=== PATIENT | female | born 1945 | race Caucasian/White ===

== ENCOUNTER → 2016-05-11 | Outpatient (CLI) | payer MEDICARE, BC ==
[2016-05-13 22:36] LABS: HEPATITIS C GENOTYPE 3 1a (.)
== END ==
LOC: LAB 10:01
PROVIDERS: ATTEND Internal Medicine Gastroenterology
DX: B18.2 Chronic viral hepatitis C (principal)
CPT/HCPCS: 36415; 81270; 82172; 82247; 82977; 83010; 83883; 84460

== ENCOUNTER → 2016-08-06 | Outpatient (CLI) | payer MEDICARE, BC | LOC: WI 10:36 | PROVIDERS: ATTEND Internal Medicine | DX: Z12.31 Encounter for screening mammogram for malignant neoplasm of breast (principal) | CPT/HCPCS: 77067; G0202 ==

== ENCOUNTER → 2016-09-20 | Outpatient (CLI) | payer MEDICARE, BC ==
[2016-09-20 11:25] LABS: ABSOLUTE BASOPHILS # (AUTO) 0.1 10^3/uL (0.0-0.2); ABSOLUTE EOSINOPHILS # (AUTO) 0.1 10^3/uL (0.0-0.6); ABSOLUTE LYMPHOCYTES (AUTO) 1.1 10^3/uL (0.5-4.7); ABSOLUTE MONOCYTES (AUTO) 0.6 10^3/uL (0.1-1.4); ABSOLUTE NEUT (AUTO) 6.2 10^3/uL (1.7-8.2); BASOPHILS % (AUTO) 0.6 % (0-2); EOSINOPHILS % (AUTO) 1.5 % (0-6); HEMATOCRIT 38.8 % (36.0-47.0); HEMOGLOBIN 12.3 g/dL (12.0-15.5); HGB HCT DIFFERENCE -1.9; LYMPHOCYTES % (AUTO) 13.2 % (13-45); MEAN CORPUSCULAR HEMOGLOBIN 23.7 pg (27.0-33.4); MEAN CORPUSCULAR HGB CONC 31.6 g/dL (32.0-36.0); MEAN CORPUSCULAR VOLUME 75 fl (80-97); RED BLOOD COUNT 5.18 10^6/uL (3.72-5.28); RED CELL DISTRIBUTION WIDTH 16.8 % (11.5-14.0); SEGMENTED NEUTROPHILS % (AUTO) 76.7 % (42-78); WHITE BLOOD COUNT 8.1 10^3/uL (4.0-10.5)
[2016-09-20 11:43] LABS: ALANINE AMINOTRANSFERASE 30 U/L (9-52); ALBUMIN 3.9 g/dL (3.5-5.0); ALKALINE PHOSPHATASE 112 U/L (38-126); ASPARTATE AMINO TRANSFERASE 23 U/L (14-36); BILIRUBIN,DIRECT 0.5 mg/dL (0.0-0.4); BILIRUBIN,TOTAL 0.8 mg/dL (0.2-1.3); TOTAL PROTEIN 7.7 g/dL (6.3-8.2)
== END ==
LOC: OD 10:45
PROVIDERS: ATTEND Internal Medicine Gastroenterology
DX: B19.20 Unspecified viral hepatitis C without hepatic coma (principal)
CPT/HCPCS: 36415; 80076; 85025

== ENCOUNTER → 2017-01-28 | Outpatient (CLI) | payer MEDICARE, BC ==
[2017-01-29 12:37] LABS: HEPATITIS C QUANT NON GRAPH HCV Not Detected IU/mL (.)
== END ==
LOC: OD 12:42
PROVIDERS: ATTEND Internal Medicine Gastroenterology
DX: B19.20 Unspecified viral hepatitis C without hepatic coma (principal)
CPT/HCPCS: 36415; 87522

== ENCOUNTER → 2017-02-01 | Outpatient (CLI) | payer MEDICARE, BC ==
--- NOTE | 2017-02-01 15:16 | RADIOLOGY REPORT (SQ) ---
EXAM DESCRIPTION: MRI CERVICAL SPINE WITHOUT COMPLETED DATE/TIME: 02/01/2017 12:12 pm REASON FOR STUDY: RADICULOPATHY, CERVICAL REGION M54.12 RADICULOPATHY, CERVICAL REGION COMPARISON: None. TECHNIQUE: Sagittal and Axial imaging includes T1, T2, STIR and gradient echo sequences. LIMITATIONS: None. FINDINGS: ALIGNMENT: Normal. VERTEBRAE: Intact. BONE MARROW: Normal. No marrow replacement or reactive changes. DISCS: Loss of T2 signal C5-6. HARDWARE: None in the spine. CORD AND BASE OF BRAIN: Normal in size and signal intensity. SOFT TISSUES: No soft tissue masses. C1-C2: No significant spinal stenosis. C2-C3: Disc osteophyte complex with ossification of posterior longitudinal ligament. Mild narrowing of the left exit foramina. C3-C4: Disc osteophyte complex asymmetric left. Lateral mass hypertrophy on the left. Moderate narr owing of the left exit foramina. Flattening of the leftward anterior thecal sac and mild central can al stenosis. C4-C5: Disc osteophyte complex and ossification of the posterior longitudinal ligament. Flattening o f the anterior thecal sac. Mild central canal stenosis. C5-C6: Disc osteophyte complex. Generalized ossification of posterior longitudinal ligament. Modera te central canal stenosis and right exit foraminal stenosis. C6-C7: No significant spinal stenosis or exit foraminal stenosis. C7-T1: No significant spinal stenosis or exit foraminal stenosis. UPPER THORACIC: Incompletely imaged. No significant spinal stenosis or exit foraminal stenosis. OTHER: No other significant finding. IMPRESSION: Multilevel disc osteophyte complexes with associated ossification of posterior longitudi nal ligament. Multilevel spinal stenosis most prominent C5-6. Multilevel exit foraminal stenosis. TECHNICAL DOCUMENTATION: JOB ID: [id number]- All Rights Reserved
== END ==
LOC: RAD 11:08
PROVIDERS: ATTEND Internal Medicine
DX: M54.12 Radiculopathy, cervical region (principal)
CPT/HCPCS: 72141

== ENCOUNTER 2017-04-15 16:47 | Observation (INO) | payer MEDICARE, BC ==
[2017-04-15] MEDS ORDERED: INFLUENZA ADLT QUAD (36MOS+) 2017-18 VAC 0.5 ML SYR IM PRN (17:24)
[2017-04-15] MEDS ORDERED: 1/2 NORMAL SALINE 1,000 ML IV PRN (17:25)
[2017-04-15 18:39] LABS: ARTERIAL BLOOD BASE EXCESS 3.4 mmol/L; ARTERIAL BLOOD O2 SATURATION 96.7 % (94-98)
[2017-04-15 18:40] LABS: ABSOLUTE EOSINOPHILS # (AUTO) 0.2 10^3/uL (0.0-0.6); ABSOLUTE LYMPHOCYTES (AUTO) 0.8 10^3/uL (0.5-4.7); ABSOLUTE MONOCYTES (AUTO) 0.8 10^3/uL (0.1-1.4); ABSOLUTE NEUT (AUTO) 4.8 10^3/uL (1.7-8.2); BASOPHILS % (AUTO) 0.6 % (0-2); EOSINOPHILS % (AUTO) 2.3 % (0-6); HEMATOCRIT 40.8 % (36.0-47.0); HEMOGLOBIN 13.3 g/dL (12.0-15.5); HGB HCT DIFFERENCE -0.9; LYMPHOCYTES % (AUTO) 12.5 % (13-45); MEAN CORPUSCULAR HEMOGLOBIN 25.1 pg (27.0-33.4); MEAN CORPUSCULAR HGB CONC 32.6 g/dL (32.0-36.0); MEAN CORPUSCULAR VOLUME 77 fl (80-97); MONOCYTES % (AUTO) 12.3 % (3-13); RED CELL DISTRIBUTION WIDTH 16.5 % (11.5-14.0); SEGMENTED NEUTROPHILS % (AUTO) 72.3 % (42-78); WHITE BLOOD COUNT 6.6 10^3/uL (4.0-10.5)
[2017-04-15 19:14] LABS: ALANINE AMINOTRANSFERASE 43 U/L (9-52); ALBUMIN 3.6 g/dL (3.5-5.0); ALKALINE PHOSPHATASE 97 U/L (38-126); ANION GAP 9 (5-19); ASPARTATE AMINO TRANSFERASE 21 U/L (14-36); BILIRUBIN,DIRECT 0.5 mg/dL (0.0-0.4); BILIRUBIN,TOTAL 0.8 mg/dL (0.2-1.3); BLOOD UREA NITROGEN 13 mg/dL (7-20); CALCIUM 9.7 mg/dL (8.4-10.2); CARBON DIOXIDE 26 mmol/L (22-30); CHLORIDE 105 mmol/L (98-107); GLUCOSE 101 mg/dL (75-110); POTASSIUM 3.8 mmol/L (3.6-5.0); SODIUM 140.2 mmol/L (137-145); TOTAL PROTEIN 6.8 g/dL (6.3-8.2)
[2017-04-15 19:21] LABS: CREATINE KINASE < 20 U/L (30-135)
[2017-04-15 19:30] LABS: CREATINE KINASE MB < 0.22 ng/mL (<4.55); TROPONIN I < 0.012 ng/mL
[2017-04-15] MEDS ORDERED: DEXTROSE 50%-WATER SYRINGE 12.5 GM/25 ML DOSE IV PRN ×2 (20:49→21:20)
[2017-04-15] MEDS ORDERED: GLUCAGON,HUMAN RECOMB 1 MG INJ IM PRN ×2 (20:49→21:07)
[2017-04-15] MEDS ORDERED: INSULIN LISPRO 100 UNIT/ML 3 ML VIAL SUBCUT PRN (20:49)
[2017-04-15] MEDS ORDERED: DEXTROSE 40% GEL 15 GM TUBE PO PRN ×3 (20:49→21:07)
[2017-04-15] MEDS ORDERED: DEXTROSE 40% GEL 15 GM TUBE X 2 PO PRN (20:49)
[2017-04-15] MEDS ORDERED: DEXTROSE 50%-WATER SYRINGE 25 GM/50 ML DOSE IV PRN ×2 (20:49→21:20)
[2017-04-15 20:54] LABS: APPEARANCE,URINE SLIGHTLY-CLOUDY; BILIRUBIN,URINE NEGATIVE (NEGATIVE); GLUCOSE, URINE >=500 mg/dL (NEGATIVE); KETONES,URINE NEGATIVE (NEGATIVE); LEUKOCYTE ESTERASE,URINE NEGATIVE (NEGATIVE); NITRITE,URINE NEGATIVE (NEGATIVE); PROTEIN,URINE NEGATIVE (NEGATIVE); URINE SPECIFIC GRAVITY 1.016; UROBILINOGEN,URINE NEGATIVE mg/dL (<2.0)
--- NOTE | 2017-04-15 21:06 | PDOC H&P ---
History of Present Illness Admission Date/PCP: 04/15/17 16:47 EFE LR MD History of Present Illness: DAYO HAYNES is a 71 year old female, She came to the office today with a complaint of chest pressure, she was recently admitted in an [facility] in [place] when she was visiting she took ill, she was admitted for the management of acute COPD exacerbation she was treated with Solu-Medrol and transitioned to p.o. prednisone and doxycycline, she finished the doxycycline yesterday,she came to the office today for follow-up .I was concerned because of the complaint of chest pressure,in the office on auscultation of the chest was clear there was no wheezing ,because of chest pain she was admitted from the office to the hospital Past Medical History Cardiac Medical History: Reports: Hypertension Endocrine Medical History: Reports: Diabetes Mellitus Type 2, Obesity Psychiatric Medical History: Reports: Depression Social History Smoking Status: Former Smoker Number of Years Smokin Last Time Smoked: 2003 Frequency of Alcohol Use: None Hx Recreational Drug Use: No Drugs: None Hx Prescription Drug Abuse: No Family History Parental Family History Reviewed: Yes Children Family History Reviewed: Yes Sibling(s) Family History Reviewed.: Yes Medication/Allergy Home Medications: RX: Canagliflozin/Metformin HCl [Invokamet Xr 150-1,000 mg Tab] 1 tab PO Q12 RX: Glimepiride [Amaryl] 2 mg PO DAILY 04/15/17 RX: Levothyroxine Sodium [Synthroid 0.075 mg Tablet] 0.075 mg PO Q6AM 04/15/17 RX: Linaclotide [Linzess] 290 mcg PO Q6AM 04/15/17 RX: Meloxicam [Mobic] 7.5 mg PO DAILY 04/15/17 RX: Montelukast Sodium [Singulair 10 mg Tablet] 10 mg PO QHS 04/15/17 RX: Omeprazole 40 mg PO DAILY 04/15/17 RX: Ranitidine HCl [Zantac 150 mg Tablet] 150 mg PO QHS 04/15/17 Allergies/Adverse Reactions: adhesive tape Allergy (Verified 11/24/15 22:53) buspirone [From BuSpar] Allergy (Verified 11/24/15 22:53) paroxetine [From Paxil] Allergy (Verified 11/24/15 22:53) Review of Systems Constitutional: ABSENT: chills, fever(s), headache(s), weight gain, weight loss Eyes: ABSENT: visual disturbances Ears: ABSENT: hearing changes Cardiovascular: PRESENT: chest pain Respiratory: PRESENT: cough, dyspnea Gastrointestinal: ABSENT: abdominal pain, constipation, diarrhea, hematemesis, hematochezia, nausea, vomiting Genitourinary: ABSENT: dysuria, hematuria Musculoskeletal: ABSENT: joint swelling Integumentary: ABSENT: rash, wounds Neurological: ABSENT: abnormal gait, abnormal speech, confusion, dizziness, focal weakness, syncope Psychiatric: ABSENT: anxiety, depression, homidical ideation, suicidal ideation Endocrine: ABSENT: cold intolerance, heat intolerance, menstrual abnormalities, polydipsia, polyuria Hematologic/Lymphatic: ABSENT: easy bleeding, easy bruising, lymphadenopathy Physical Exam Vital Signs: Temp Pulse Resp BP Pulse Ox 98.6 F 93 18 124/68 98 04/15/17 17:22 04/15/17 19:00 04/15/17 17:22 04/15/17 17:22 04/15/17 17:22 Intake & Output 04/14/17 04/15/17 04/16/17 06:59 06:59 06:59 Intake Total 30 Balance 30 Weight 133 kg General appearance: PRESENT: no acute distress, well-developed, well-nourished Head exam: PRESENT: atraumatic, normocephalic Eye exam: PRESENT: conjunctiva pink, EOMI, PERRLA Ear exam: PRESENT: normal external ear exam Mouth exam: PRESENT: moist, tongue midline Neck exam: PRESENT: full ROM Respiratory exam: PRESENT: clear to auscultation maureen Cardiovascular exam: PRESENT: RRR, +S1, +S2 Pulses: PRESENT: normal dorsalis pedis pul, +2 pedal pulses bilateral Vascular exam: PRESENT: normal capillary refill GI/Abdominal exam: PRESENT: normal bowel sounds, soft Rectal exam: PRESENT: deferred Neurological exam: PRESENT: alert, awake, oriented to person, oriented to place , oriented to time, oriented to situation, CN II-XII grossly intact Psychiatric exam: PRESENT: appropriate affect, normal mood Skin exam: PRESENT: dry, intact, warm Results Laboratory Results: 04/15/17 18:30 04/15/17 18:30 04/15/17 04/15/17 04/15/17 18:20 18:30 18:30 WBC 6.6 RBC 5.30 H Hgb 13.3 Hct 40.8 MCV 77 L MCH 25.1 L MCHC 32.6 RDW 16.5 H Plt Count 108 L Seg Neutrophils % 72.3 Lymphocytes % 12.5 L Monocytes % 12.3 Eosinophils % 2.3 Basophils % 0.6 Absolute Neutrophils 4.8 Absolute Lymphocytes 0.8 Absolute Monocytes 0.8 Absolute Eosinophils 0.2 Absolute Basophils 0.0 Carbonic Acid 1.25 HCO3/H2CO3 Ratio 22:1 ABG pH 7.45 ABG pCO2 41.4 ABG pO2 84.1 ABG HCO3 27.8 H ABG O2 Saturation 96.7 ABG Base Excess 3.4 FiO2 ROOM AIR Sodium 140.2 Potassium 3.8 Chloride 105 Carbon Dioxide 26 Anion Gap 9 BUN 13 Creatinine 1.00 Est GFR ( Amer) > 60 Est GFR (Non-Af Amer) 55 L Glucose 101 Calcium 9.7 Total Bilirubin 0.8 AST 21 ALT 43 Alkaline Phosphatase 97 Total Protein 6.8 Albumin 3.6 04/15/17 04/15/17 18:30 18:30 Creatine Kinase < 20 L CK-MB (CK-2) < 0.22 Troponin I < 0.012 Assessment & Plan - Diagnosis (1) Chest pain Qualifiers: Chest pain type: unspecified Qualified Code(s): R07.9 - Chest pain, unspecified Is this a current diagnosis for this admission?: Yes (2) COPD (chronic obstructive pulmonary disease) Qualifiers: COPD type: unspecified COPD Qualified Code(s): J44.9 - Chronic obstructive pulmonary disease, unspecified Is this a current diagnosis for this admission?: Yes
[2017-04-15] MEDS ORDERED: DEXTROSE 50%-WATER 25 GM/50 ML DISP.SYRIN IV PRN ×2 (21:07)
[2017-04-15 21:39] LABS: PROTHROMBIN TIME 13.7 SEC (11.4-15.4)
[2017-04-15] MEDS ORDERED: METFORMIN HCL PO SCH (22:00)
[2017-04-15] MEDS ORDERED: [UNRECOGNIZED DRUG - OTHER] PO SCH (22:00)
[2017-04-15] MEDS ORDERED: MELOXICAM 7.5 MG TABLET PO ONE (22:00)
[2017-04-15] MEDS ORDERED: CANAGLIFLOZIN PO SCH (22:00)
[2017-04-15] MEDS: MONTELUKAST SODIUM 10 MG TABLET PO SCH (22:09)
[2017-04-16 02:16] LABS: CREATINE KINASE MB < 0.22 ng/mL (<4.55); TROPONIN I < 0.012 ng/mL
[2017-04-16] MEDS: LEVOTHYROXINE SODIUM 0.075 MG TABLET PO SCH (05:37)
[2017-04-16] MEDS: LANSOPRAZOLE 30 MG TAB.RAP.DR PO SCH ×2 (05:37→21:11)
--- NOTE | 2017-04-16 05:39 | EKG REPORT ---
SEVERITY:- ABNORMAL ECG - SINUS RHYTHM BORDERLINE LEFT AXIS DEVIATION BORDERLINE R WAVE PROGRESSION, ANTERIOR LEADS : Confirmed by: Gabino García 16-Apr-2017 05:38:40
--- NOTE | 2017-04-16 08:09 | RADIOLOGY REPORT (SQ) ---
EXAM DESCRIPTION: CHEST PA/LAT COMPLETED DATE/TIME: 04/15/2017 7:01 pm REASON FOR STUDY: chest pain, COPD COMPARISON: 2015. TECHNIQUE: Frontal and lateral radiographic views of the chest acquired. NUMBER OF VIEWS: Two view. LIMITATIONS: None. FINDINGS: LUNGS AND PLEURA: No opacities, masses or pneumothorax. No pleural effusion. MEDIASTINUM AND HILAR STRUCTURES: No masses or contour abnormalities. HEART AND VASCULAR STRUCTURES: Heart normal size. No evidence for failure. BONES: No acute findings. HARDWARE: None in the chest. OTHER: No other significant finding. IMPRESSION: NO SIGNIFICANT RADIOGRAPHIC FINDING IN THE CHEST. TECHNICAL DOCUMENTATION: JOB ID: [id number] [email or web address]- All Rights Reserved
--- NOTE | 2017-04-16 09:30 | PDOC PROGRESS REPORT ---
Subjective Progress Note for:: 04/16/17 Subjective:: Patient was admitted for the chest pain by Dr. blair's office and initial cardiac workup is all negative Patient was recently admitted in the [facility] for the same problems and according to the patient have a CT of the chest was done was negative for any blood clot History of the blood clot in the leg and was taking the Xarelto and Coumadin in the past but currently not taking Is denied any heart problems but significant history of the COPD Reason For Visit: CHEST PAIN,COPD Physical Exam Vital Signs: Temp Pulse Resp BP Pulse Ox 97.5 F 61 18 119/55 L 100 04/16/17 07:33 04/16/17 07:33 04/16/17 07:33 04/16/17 07:33 04/16/17 07:33 Intake & Output 04/15/17 04/16/17 04/17/17 06:59 06:59 06:59 Intake Total 1120 Output Total 300 Balance 820 Weight 134.9 kg General appearance: PRESENT: no acute distress, well-developed, well-nourished Head exam: PRESENT: atraumatic, normocephalic Eye exam: PRESENT: conjunctiva pink, EOMI, PERRLA. ABSENT: scleral icterus Ear exam: PRESENT: normal external ear exam Mouth exam: PRESENT: moist, tongue midline Neck exam: PRESENT: full ROM. ABSENT: carotid bruit, JVD, lymphadenopathy, thyromegaly Respiratory exam: PRESENT: clear to auscultation maureen Cardiovascular exam: PRESENT: RRR. ABSENT: diastolic murmur, rubs, systolic murmur Pulses: PRESENT: normal dorsalis pedis pul, +2 pedal pulses bilateral Vascular exam: PRESENT: normal capillary refill GI/Abdominal exam: PRESENT: normal bowel sounds, soft. ABSENT: distended, guarding, mass, organolmegaly, rebound, tenderness Rectal exam: PRESENT: deferred Extremities exam: ABSENT: pedal edema Neurological exam: PRESENT: alert, awake, oriented to person, oriented to place , oriented to time, oriented to situation, CN II-XII grossly intact. ABSENT: motor sensory deficit Psychiatric exam: PRESENT: appropriate affect, normal mood. ABSENT: homicidal ideation, suicidal ideation Skin exam: PRESENT: dry, intact, warm. ABSENT: cyanosis, rash Results Laboratory Results: 04/15/17 18:30 04/15/17 18:30 04/15/17 04/15/17 04/15/17 18:20 18:30 18:30 WBC 6.6 RBC 5.30 H Hgb 13.3 Hct 40.8 MCV 77 L MCH 25.1 L MCHC 32.6 RDW 16.5 H Plt Count 108 L Seg Neutrophils % 72.3 Lymphocytes % 12.5 L Monocytes % 12.3 Eosinophils % 2.3 Basophils % 0.6 Absolute Neutrophils 4.8 Absolute Lymphocytes 0.8 Absolute Monocytes 0.8 Absolute Eosinophils 0.2 Absolute Basophils 0.0 Carbonic Acid 1.25 HCO3/H2CO3 Ratio 22:1 ABG pH 7.45 ABG pCO2 41.4 ABG pO2 84.1 ABG HCO3 27.8 H ABG O2 Saturation 96.7 ABG Base Excess 3.4 FiO2 ROOM AIR Sodium 140.2 Potassium 3.8 Chloride 105 Carbon Dioxide 26 Anion Gap 9 BUN 13 Creatinine 1.00 Est GFR ( Amer) > 60 Est GFR (Non-Af Amer) 55 L Glucose 101 Calcium 9.7 Total Bilirubin 0.8 AST 21 ALT 43 Alkaline Phosphatase 97 Total Protein 6.8 Albumin 3.6 Urine Color Urine Appearance Urine pH Ur Specific [place] Urine Protein Urine Glucose (UA) Urine Ketones Urine Blood Urine Nitrite Ur Leukocyte Esterase Urine WBC (Auto) Urine RBC (Auto) 04/15/17 20:30 WBC RBC Hgb Hct MCV MCH MCHC RDW Plt Count Seg Neutrophils % Lymphocytes % Monocytes % Eosinophils % Basophils % Absolute Neutrophils Absolute Lymphocytes Absolute Monocytes Absolute Eosinophils Absolute Basophils Carbonic Acid HCO3/H2CO3 Ratio ABG pH ABG pCO2 ABG pO2 ABG HCO3 ABG O2 Saturation ABG Base Excess FiO2 Sodium Potassium Chloride Carbon Dioxide Anion Gap BUN Creatinine Est GFR ( Amer) Est GFR (Non-Af Amer) Glucose Calcium Total Bilirubin AST ALT Alkaline Phosphatase Total Protein Albumin Urine Color YELLOW Urine Appearance SLIGHTLY-CLOUDY Urine pH 5.0 Ur Specific [place] 1.016 Urine Protein NEGATIVE Urine Glucose (UA) >=500 H Urine Ketones NEGATIVE Urine Blood NEGATIVE Urine Nitrite NEGATIVE Ur Leukocyte Esterase NEGATIVE Urine WBC (Auto) 2 Urine RBC (Auto) 2 04/15/17 04/15/17 04/16/17 18:30 18:30 01:16 Creatine Kinase < 20 L < 20 L CK-MB (CK-2) < 0.22 Troponin I < 0.012 04/16/17 01:16 Creatine Kinase CK-MB (CK-2) < 0.22 Troponin I < 0.012 Impressions: Chest X-Ray 04/15/17 00:00 IMPRESSION: NO SIGNIFICANT RADIOGRAPHIC FINDING IN THE CHEST. Assessment & Plan - Diagnosis (1) Chest pain Qualifiers: Chest pain type: unspecified Qualified Code(s): R07.9 - Chest pain, unspecified Is this a current diagnosis for this admission?: Yes Plan: On initial cardiac workup is negative we will repeat the EKG (2) COPD (chronic obstructive pulmonary disease) Qualifiers: COPD type: unspecified COPD Qualified Code(s): J44.9 - Chronic obstructive pulmonary disease, unspecified Is this a current diagnosis for this admission?: Yes Plan: order DuoNeb the nebulizer (3) Hypertension Qualifiers: Hypertension type: unspecified Qualified Code(s): I10 - Essential (primary ) hypertension Is this a current diagnosis for this admission?: Yes (4) Obesity Qualifiers: Obesity type: unspecified obesity type Is this a current diagnosis for this admission?: Yes (5) History of DVT (deep vein thrombosis) Is this a current diagnosis for this admission?: Yes Plan: We will get the VQ scan today and get the medical record from the hospital while patient was concern about the IV contrast on the stress test which patients was a blue after the contrast - Time Time Spent with patient: 15-24 minutes Medications reviewed and adjusted accordingly: Yes Anticipated discharge: Other Within: Other - Inpatient Certification Medical Necessity: Need Close Monitoring Due to Risk of Patient Decompensation Post Hospital Care: D/C Swabber Documentation - Plan Summary Plan Summary: Order the VQ scan get the medical record
[2017-04-16] MEDS: MELOXICAM 7.5 MG TABLET PO SCH (10:08)
[2017-04-16] MEDS: ENOXAPARIN SODIUM INJ 40 MG/0.4 ML DISP.SYRIN SUBCUT SCH (10:08)
[2017-04-16] MEDS: GLIMEPIRIDE 1 MG TABLET PO SCH (10:08)
[2017-04-16 10:37] LABS: CREATINE KINASE MB < 0.22 ng/mL (<4.55); TROPONIN I < 0.012 ng/mL
[2017-04-16] MEDS: IPRATROPIUM/ALBUTEROL 0.5-2.5 MG/3 ML AMPUL NEB SCH ×3 (11:45→20:07)
[2017-04-16 15:48] LABS: CREATINE KINASE MB < 0.22 ng/mL (<4.55); TROPONIN I < 0.012 ng/mL
[2017-04-16] MEDS: MONTELUKAST SODIUM 10 MG TABLET PO SCH (21:09)
[2017-04-16 21:45] LABS: CREATINE KINASE MB 0.34 ng/mL (<4.55)
[2017-04-16 21:46] LABS: TROPONIN I < 0.012 ng/mL
[2017-04-16] MEDS ORDERED: ACETAMINOPHEN 325 MG TABLET PO PRN (21:59)
--- NOTE | 2017-04-16 23:07 | EKG REPORT ---
SEVERITY:- BORDERLINE ECG - SINUS RHYTHM BORDERLINE LEFT AXIS DEVIATION BORDERLINE R WAVE PROGRESSION, ANTERIOR LEADS : Confirmed by: Gabino García 16-Apr-2017 23:06:44
[2017-04-17] MEDS: LEVOTHYROXINE SODIUM 0.075 MG TABLET PO SCH (06:17)
[2017-04-17 07:43] LABS: ABSOLUTE EOSINOPHILS # (AUTO) 0.1 10^3/uL (0.0-0.6); ABSOLUTE MONOCYTES (AUTO) 0.7 10^3/uL (0.1-1.4); ABSOLUTE NEUT (AUTO) 2.2 10^3/uL (1.7-8.2); BASOPHILS % (AUTO) 0.7 % (0-2); EOSINOPHILS % (AUTO) 3.2 % (0-6); HEMATOCRIT 35.8 % (36.0-47.0); HEMOGLOBIN 11.3 g/dL (12.0-15.5); HGB HCT DIFFERENCE -1.9; LYMPHOCYTES % (AUTO) 25.4 % (13-45); MEAN CORPUSCULAR HEMOGLOBIN 24.7 pg (27.0-33.4); MEAN CORPUSCULAR HGB CONC 31.4 g/dL (32.0-36.0); MEAN CORPUSCULAR VOLUME 79 fl (80-97); MONOCYTES % (AUTO) 16.6 % (3-13); RED BLOOD COUNT 4.55 10^6/uL (3.72-5.28); RED CELL DISTRIBUTION WIDTH 16.3 % (11.5-14.0); SEGMENTED NEUTROPHILS % (AUTO) 54.1 % (42-78)
[2017-04-17 08:03] LABS: ANION GAP 7 (5-19); BLOOD UREA NITROGEN 19 mg/dL (7-20); CALCIUM 8.8 mg/dL (8.4-10.2); CARBON DIOXIDE 27 mmol/L (22-30); CHLORIDE 108 mmol/L (98-107); CREATININE RESULT 1.18 mg/dL (0.52-1.25); GLUCOSE 96 mg/dL (75-110); POTASSIUM 3.7 mmol/L (3.6-5.0)
[2017-04-17] MEDS: IPRATROPIUM/ALBUTEROL 0.5-2.5 MG/3 ML AMPUL NEB SCH ×4 (08:35→20:06)
[2017-04-17] MEDS: GLIMEPIRIDE 1 MG TABLET PO SCH (09:27)
[2017-04-17] MEDS: ENOXAPARIN SODIUM INJ 40 MG/0.4 ML DISP.SYRIN SUBCUT SCH (09:28)
[2017-04-17] MEDS: MELOXICAM 7.5 MG TABLET PO SCH (09:28)
--- NOTE | 2017-04-17 10:41 | RADIOLOGY REPORT (SQ) ---
EXAM DESCRIPTION: NM LUNG VENT/PERF SCAN COMPLETED DATE/TIME: 04/16/2017 1:58 pm REASON FOR STUDY: sob/h/o dvt R07.9 CHEST PAIN, UNSPECIFIED E13.9 OTHER SPECIFIED DIABETES MELLIT US WITHOUT COMPLICATION COMPARISON: Two-view chest 04/15/2017 RADIONUCLIDE AND DOSE: 5.3 millicuries TC-99m MAA Intravenous 32.3 millicuries TC-99m DTPA Inhaled aerosol TECHNIQUE: Eight views of the lungs acquired post ventilation of DTPA aerosol. Eight matching views of the lungs acquired following injection of MAA. LIMITATIONS: None. FINDINGS: VENTILATION: Symmetric and homogeneous distribution of DTPA aerosol during ventilatory pha se. No significant areas of photopenia. There is clumping of material in the central airways, swall owed activity in the stomach. PERFUSION: Perfusion images with normal homogenous activity and no wedge-shaped or segmental defects. No ventilation-perfusion mismatches. OTHER: No other significant finding. IMPRESSION: NORMAL VENTILATION-PERFUSION LUNG SCAN. NEGATIVE FOR PULMONARY EMBOLI. TECHNICAL DOCUMENTATION: JOB ID: [id number] [employer]- All Rights Reserved
--- NOTE | 2017-04-17 10:50 | PDOC PROGRESS REPORT ---
Subjective Progress Note for:: 04/17/17 Subjective:: Patient is feeling much better In any chest pain Denied any shortness of the breath Patient's VQ scan is negative Reason For Visit: CHEST PAIN,COPD Physical Exam Vital Signs: Temp Pulse Resp BP Pulse Ox 97.7 F 66 18 119/54 L 96 04/17/17 07:29 04/17/17 08:35 04/17/17 08:35 04/17/17 07:29 04/17/17 08:35 Intake & Output 04/16/17 04/17/17 04/18/17 06:59 06:59 06:59 Intake Total 1120 2552 Output Total 300 1400 Balance 820 1152 Weight 134.9 kg 134.9 kg General appearance: PRESENT: no acute distress, well-developed, well-nourished Head exam: PRESENT: atraumatic, normocephalic Eye exam: PRESENT: conjunctiva pink, EOMI, PERRLA. ABSENT: scleral icterus Ear exam: PRESENT: normal external ear exam Mouth exam: PRESENT: moist, tongue midline Neck exam: PRESENT: full ROM. ABSENT: carotid bruit, JVD, lymphadenopathy, thyromegaly Respiratory exam: PRESENT: clear to auscultation maureen Cardiovascular exam: PRESENT: RRR. ABSENT: diastolic murmur, rubs, systolic murmur Pulses: PRESENT: normal dorsalis pedis pul, +2 pedal pulses bilateral Vascular exam: PRESENT: normal capillary refill GI/Abdominal exam: PRESENT: normal bowel sounds, soft. ABSENT: distended, guarding, mass, organolmegaly, rebound, tenderness Rectal exam: PRESENT: deferred Neurological exam: PRESENT: alert, awake, oriented to person, oriented to place , oriented to time, oriented to situation, CN II-XII grossly intact. ABSENT: motor sensory deficit Psychiatric exam: PRESENT: appropriate affect, normal mood. ABSENT: homicidal ideation, suicidal ideation Skin exam: PRESENT: dry, intact, warm. ABSENT: cyanosis, rash Results Laboratory Results: 04/17/17 06:57 04/17/17 06:57 04/17/17 04/17/17 06:57 06:57 WBC 4.0 RBC 4.55 Hgb 11.3 L Hct 35.8 L MCV 79 L MCH 24.7 L MCHC 31.4 L RDW 16.3 H Plt Count 102 L Seg Neutrophils % 54.1 Lymphocytes % 25.4 Monocytes % 16.6 H Eosinophils % 3.2 Basophils % 0.7 Absolute Neutrophils 2.2 Absolute Lymphocytes 1.0 Absolute Monocytes 0.7 Absolute Eosinophils 0.1 Absolute Basophils 0.0 Sodium 142.0 Potassium 3.7 Chloride 108 H Carbon Dioxide 27 Anion Gap 7 BUN 19 Creatinine 1.18 Est GFR ( Amer) 55 L Est GFR (Non-Af Amer) 45 L Glucose 96 Calcium 8.8 04/15/17 04/15/17 04/16/17 18:30 18:30 01:16 Creatine Kinase < 20 L < 20 L CK-MB (CK-2) < 0.22 Troponin I < 0.012 04/16/17 04/16/17 04/16/17 01:16 09:37 09:37 Creatine Kinase < 20 L CK-MB (CK-2) < 0.22 < 0.22 Troponin I < 0.012 < 0.012 04/16/17 04/16/17 04/16/17 15:03 15:03 21:00 Creatine Kinase 24 L < 20 L CK-MB (CK-2) < 0.22 Troponin I < 0.012 04/16/17 21:00 Creatine Kinase CK-MB (CK-2) 0.34 Troponin I < 0.012 Impressions: Chest X-Ray 04/15/17 00:00 IMPRESSION: NO SIGNIFICANT RADIOGRAPHIC FINDING IN THE CHEST. Lung Scan-VQ NM 04/16/17 00:00 IMPRESSION: NORMAL VENTILATION-PERFUSION LUNG SCAN. NEGATIVE FOR PULMONARY EMBOLI. Assessment & Plan - Diagnosis (1) Chest pain Qualifiers: Chest pain type: unspecified Qualified Code(s): R07.9 - Chest pain, unspecified Is this a current diagnosis for this admission?: Yes Plan: With a negative cardiac workup and negative VQ scan patients probably need outpatient stress test patient's last stress test was done 3 years back (2) COPD (chronic obstructive pulmonary disease) Qualifiers: COPD type: unspecified COPD Qualified Code(s): J44.9 - Chronic obstructive pulmonary disease, unspecified Is this a current diagnosis for this admission?: Yes Plan: order DuoNeb the nebulizer (3) Hypertension Qualifiers: Hypertension type: unspecified Qualified Code(s): I10 - Essential (primary ) hypertension Is this a current diagnosis for this admission?: Yes (4) Obesity Qualifiers: Obesity type: unspecified obesity type Is this a current diagnosis for this admission?: Yes (5) History of DVT (deep vein thrombosis) Is this a current diagnosis for this admission?: Yes - Time Time Spent with patient: 15-24 minutes Medications reviewed and adjusted accordingly: Yes Anticipated discharge: Home Within: within 24 hours - Inpatient Certification Medical Necessity: Need Close Monitoring Due to Risk of Patient Decompensation Post Hospital Care: D/C Consumer Educator Documentation - Plan Summary Plan Summary: Continues to current medication
[2017-04-17] MEDS: MONTELUKAST SODIUM 10 MG TABLET PO SCH (21:48)
[2017-04-18] MEDS: LEVOTHYROXINE SODIUM 0.075 MG TABLET PO SCH (05:40)
[2017-04-18] MEDS: LANSOPRAZOLE 30 MG TAB.RAP.DR PO SCH (05:40)
[2017-04-18 08:45] LABS: ANION GAP 7 (5-19); BLOOD UREA NITROGEN 21 mg/dL (7-20); CALCIUM 9.1 mg/dL (8.4-10.2); CARBON DIOXIDE 26 mmol/L (22-30); CHLORIDE 108 mmol/L (98-107); GLUCOSE 95 mg/dL (75-110); SODIUM 141.4 mmol/L (137-145)
[2017-04-18] MEDS: IPRATROPIUM/ALBUTEROL 0.5-2.5 MG/3 ML AMPUL NEB SCH ×3 (09:19→16:33)
[2017-04-18] MEDS: GLIMEPIRIDE 1 MG TABLET PO SCH (10:49)
[2017-04-18] MEDS: MELOXICAM 7.5 MG TABLET PO SCH (10:50)
[2017-04-18] MEDS: ENOXAPARIN SODIUM INJ 40 MG/0.4 ML DISP.SYRIN SUBCUT SCH (10:51)
[2017-04-18 17:43] VITALS: BP 124/68
--- NOTE | 2017-04-18 17:43 | PDOC DISCHARGE SUMMARY ---
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 Is this a current diagnosis for this admission?: Yes - Additional Information Discharge Activity: Activity As Tolerated Home Medications: Canagliflozin/Metformin HCl [Invokamet Xr 150-1,000 mg Tab] 1 tab PO Q12 Glimepiride [Amaryl] 2 mg PO DAILY 04/15/17 Levothyroxine Sodium [Synthroid 0.075 mg Tablet] 0.075 mg PO Q6AM 04/15/17 Linaclotide [Linzess] 290 mcg PO Q6AM 04/15/17 Meloxicam [Mobic] 7.5 mg PO DAILY 04/15/17 Montelukast Sodium [Singulair 10 mg Tablet] 10 mg PO QHS 04/15/17 Omeprazole 40 mg PO DAILY 04/15/17 Ranitidine HCl [Zantac 150 mg Tablet] 150 mg PO QHS 04/15/17 History of Present Illness History of Present Illness: DAYO HAYNES is a 71 year old female, She came to the office today with a complaint of chest pressure, she was recently admitted in an [facility] in [place] when she was visiting she took ill, she was admitted for the management of acute COPD exacerbation she was treated with Solu-Medrol and transitioned to p.o. prednisone and doxycycline, she finished the doxycycline yesterday,she came to the office today for follow-up .I was concerned because of the complaint of chest pressure,in the office on auscultation of the chest was clear there was no wheezing ,because of chest pain she was admitted from the office to the hospital Hospital Course Hospital Course: Patient was admitted for the management of chest pain, it was suspicious, 3 sets of cardiac enzymes came back negative for acute LA. A VQ scan was done over the weekend, it was negative for pulmonary embolism Physical Exam Vital Signs: Temp Pulse Resp BP Pulse Ox 97.8 F 76 18 130/55 H 98 04/18/17 15:48 04/18/17 16:33 04/18/17 16:33 04/18/17 15:48 04/18/17 16:33 Intake & Output 04/17/17 04/18/17 04/19/17 06:59 06:59 06:59 Intake Total 2552 2650 222 Output Total 1400 401 Balance 1152 2249 222 Weight 134.9 kg General appearance: PRESENT: no acute distress, well-developed, well-nourished Head exam: PRESENT: atraumatic, normocephalic Eye exam: PRESENT: conjunctiva pink, EOMI, PERRLA. ABSENT: scleral icterus Ear exam: PRESENT: normal external ear exam Mouth exam: PRESENT: moist, tongue midline Neck exam: PRESENT: full ROM Respiratory exam: PRESENT: clear to auscultation maureen Cardiovascular exam: PRESENT: RRR, +S1, +S2. ABSENT: diastolic murmur, rubs, systolic murmur Pulses: PRESENT: normal dorsalis pedis pul, +2 pedal pulses bilateral Vascular exam: PRESENT: normal capillary refill GI/Abdominal exam: PRESENT: normal bowel sounds, soft. ABSENT: distended, guarding, mass, organolmegaly, rebound, tenderness Rectal exam: PRESENT: deferred Neurological exam: PRESENT: alert, awake, oriented to person, oriented to place , oriented to time, oriented to situation, CN II-XII grossly intact. ABSENT: motor sensory deficit Psychiatric exam: PRESENT: appropriate affect, normal mood. ABSENT: homicidal ideation, suicidal ideation Skin exam: PRESENT: dry, intact, warm. ABSENT: cyanosis, rash Results Laboratory Results: 04/17/17 06:57 04/18/17 07:50 04/18/17 07:50 Sodium 141.4 Potassium 4.0 Chloride 108 H Carbon Dioxide 26 Anion Gap 7 BUN 21 H Creatinine 1.10 Est GFR ( Amer) > 60 Est GFR (Non-Af Amer) 49 L Glucose 95 Calcium 9.1 04/15/17 04/15/17 04/16/17 18:30 18:30 01:16 Creatine Kinase < 20 L < 20 L CK-MB (CK-2) < 0.22 Troponin I < 0.012 04/16/17 04/16/17 04/16/17 01:16 09:37 09:37 Creatine Kinase < 20 L CK-MB (CK-2) < 0.22 < 0.22 Troponin I < 0.012 < 0.012 04/16/17 04/16/17 04/16/17 15:03 15:03 21:00 Creatine Kinase 24 L < 20 L CK-MB (CK-2) < 0.22 Troponin I < 0.012 04/16/17 21:00 Creatine Kinase CK-MB (CK-2) 0.34 Troponin I < 0.012 Impressions: Chest X-Ray 04/15/17 00:00 IMPRESSION: NO SIGNIFICANT RADIOGRAPHIC FINDING IN THE CHEST. [facility] 04/16/17 00:00 IMPRESSION: NORMAL VENTILATION-PERFUSION LUNG SCAN. NEGATIVE FOR PULMONARY EMBOLI.
== END 2017-04-18 18:02 | disposition home or self-care (01) ==
LOC: 3S 16:47
PROVIDERS: ADMIT Internal Medicine; ATTEND Internal Medicine
PROC: 3E0F7GC Introduction of Other Therapeutic Substance into Respiratory Tract, Via Natural or Artificial Opening (ICD-10-PCS; principal; 2017-04-15)
DX: R07.89 Other chest pain (principal); J44.9 Chronic obstructive pulmonary disease, unspecified; I10 Essential (primary) hypertension; E11.42 Type 2 diabetes mellitus with diabetic polyneuropathy; E66.9 Obesity, unspecified; Z79.899 Other long term (current) drug therapy; Z79.84 Long term (current) use of oral hypoglycemic drugs; Z87.891 Personal history of nicotine dependence; Z86.718 Personal history of other venous thrombosis and embolism; Z68.42 Body mass index [BMI] 45.0-49.9, adult
CPT/HCPCS: 36415 ×4; 82553 ×2; 82962 ×4; 82803; 82550 ×2; 85025 ×2; 85610; 85730; 80076; 80048 ×3; 81001; 84484 ×2; 83036; 71020; 78582; 93005 ×2; 93010 ×2; 36600; 94640 ×3; A9540; A9567; A9270 ×19; J1650 ×3; Q9969; J7620

== ENCOUNTER → 2017-05-17 | Outpatient (CLI) | payer MEDICARE, BC ==
--- NOTE | 2017-05-17 12:02 | RADIOLOGY REPORT (SQ) ---
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 Reconstructed coronal and sagittal MPR images reviewed. All images stored on PACS. All CT scanners at this facility use dose modulation, iterative reconstruction, and/or weight based d osing when appropriate to reduce radiation dose to as low as reasonably achievable (ALARA). [facility]: Dose Right [facility]: CareDose [facility]: Dose Right [facility]: Teradose 4D [facility]: [employer] CONTRAST TYPE AND DOSE: contrast/concentration: Isovue 370.00 mg/ml; Total Contrast Delivered: 57.4 ml; Total Saline Delivered: 20.0 ml RENAL FUNCTION: Creatinine 1.1 RADIATION DOSE: CT Rad equipment meets quality standard of care and radiation dose reduction techniq ues were employed. CTDIvol: 18.4 mGy. DLP: 530 mGy-cm. . LIMITATIONS: None. FINDINGS: SKULL BASE: Intact. Inferior brain parenchyma in the field of view, napaimute of [place] vess els are unremarkable. MAJOR SALIVARY GLANDS: No solid or cystic masses. No inflammatory changes. No salivary gland calcif ications. No [place]'s duct calcifications. No discrete mass over the superficial lobe left parotid gland in the area of clinical palpable abnormality. LYMPHADENOPATHY: No adenopathy. MUCOSAL MASSES OR ASYMMETRY: No mucosal masses or asymmetry. LARYNX/CORDS: No abnormal findings. VASCULAR STRUCTURES: The major vessels are patent. LUNG APICES: Clear. 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 Ultrasound could be use ful further characterization. PARANASAL SINUSES: Clear. OTHER: No other significant finding. 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
== END ==
LOC: RAD 07:26
PROVIDERS: ATTEND Otolaryngology
DX: K11.9 Disease of salivary gland, unspecified (principal)
CPT/HCPCS: 70491

== ENCOUNTER 2017-06-01 10:25 | Day surgery (SDC) | payer MEDICARE, BC ==
[~2017-06-01 10:25] MED LIST: CHONDR SU A NA/HYALUR INTRAOC KIT (SURGICARE) ONE; EPINEPHRINE INJ/PF 1 MG/1 ML AMPULE ONE; KETOROLAC TROMETHAMINE 0.45% 4 DROP/0.4 ML DROPERETTE OD PRN; LIDOCAINE 1% INJ-PF (10 MG/ML) 30 ML SDV ONE; TOBRAMYCIN SULFATE/DEXAMETH OPH OINTMENT 3.5 GM ONE
[2017-06-01] MEDS: TROPICAMIDE 1% OPH SOLN 3 ML OD PRN ×3 (11:05→11:25)
[2017-06-01] MEDS: CYCLOPENTOLATE 0.2%/PHENYLEPHRINE 1% OPH SOLN 2 ML OD PRN ×3 (11:05→11:25)
[2017-06-01] MEDS: TETRACAINE HCL 0.5% OPH SOLN 0.6 ML DROPERETTE OD PRN ×3 (11:05→11:36)
[2017-06-01] MEDS: BESIFLOXACIN HCL 0.6% OPH SUSP 5 ML BOTTLE OD PRN ×3 (11:06→11:59)
[2017-06-01] MEDS ORDERED: MIDAZOLAM 2 MG/2 ML INJ ONE (11:19)
== END 2017-06-01 12:55 | disposition home or self-care (01) ==
LOC: SC 10:25
PROVIDERS: ATTEND Ophthalmology
PROC: 08RJ3JZ Replacement of Right Lens with Synthetic Substitute, Percutaneous Approach (ICD-10-PCS; principal; 2017-06-01 11:30)
DX: H25.11 Age-related nuclear cataract, right eye (principal); J44.9 Chronic obstructive pulmonary disease, unspecified; E11.9 Type 2 diabetes mellitus without complications; I10 Essential (primary) hypertension; E03.9 Hypothyroidism, unspecified; M19.90 Unspecified osteoarthritis, unspecified site; K21.9 Gastro-esophageal reflux disease without esophagitis; E66.9 Obesity, unspecified; Z79.51 Long term (current) use of inhaled steroids; Z79.899 Other long term (current) drug therapy; Z68.43 Body mass index [BMI] 50.0-59.9, adult; Z88.8 Allergy status to other drugs, medicaments and biological substances; Z91.040 Latex allergy status; Z79.84 Long term (current) use of oral hypoglycemic drugs
CPT/HCPCS: 66984; 82962; V2630; J2250; J3490 ×3; A9270; J0171; 142

== ENCOUNTER 2017-06-15 09:10 | Day surgery (SDC) | payer MEDICARE, BC ==
[~2017-06-15 09:10] MED LIST changes: -KETOROLAC TROMETHAMINE 0.45% 4 DROP/0.4 ML DROPERETTE OD PRN; +KETOROLAC TROMETHAMINE 0.45% 4 DROP/0.4 ML DROPERETTE OS PRN
[2017-06-15] MEDS: CYCLOPENTOLATE 0.2%/PHENYLEPHRINE 1% OPH SOLN 2 ML OS PRN ×3 (09:42→10:01)
[2017-06-15] MEDS: TETRACAINE HCL 0.5% OPH SOLN 0.6 ML DROPERETTE OS PRN ×3 (09:42→10:17)
[2017-06-15] MEDS: TROPICAMIDE 1% OPH SOLN 3 ML OS PRN ×3 (09:43→10:01)
[2017-06-15] MEDS: BESIFLOXACIN HCL 0.6% OPH SUSP 5 ML BOTTLE OS PRN ×3 (09:43→10:44)
[2017-06-15] MEDS ORDERED: FENTANYL CITRATE INJ/PF 100 MCG/2 ML AMPUL ONE (09:59)
[2017-06-15] MEDS ORDERED: MIDAZOLAM 2 MG/2 ML INJ ONE (09:59)
== END 2017-06-15 11:22 | disposition home or self-care (01) ==
LOC: SC 09:10
PROVIDERS: ATTEND Ophthalmology
PROC: 08RK3JZ Replacement of Left Lens with Synthetic Substitute, Percutaneous Approach (ICD-10-PCS; principal; 2017-06-15 10:30)
DX: H25.12 Age-related nuclear cataract, left eye (principal); Z98.41 Cataract extraction status, right eye; J44.9 Chronic obstructive pulmonary disease, unspecified; E11.9 Type 2 diabetes mellitus without complications; I10 Essential (primary) hypertension; E03.9 Hypothyroidism, unspecified; F32.9 Major depressive disorder, single episode, unspecified; M19.90 Unspecified osteoarthritis, unspecified site; Z79.51 Long term (current) use of inhaled steroids; Z79.899 Other long term (current) drug therapy; Z88.8 Allergy status to other drugs, medicaments and biological substances; Z91.040 Latex allergy status
CPT/HCPCS: 82962; 66984; V2630; J2250; J3490 ×3; A9270; J0171; J3010; 142

== ENCOUNTER → 2017-06-21 | Day surgery (SDC) | payer MEDICARE, BC ==
[~2017-06-21] MED LIST changes: -CHONDR SU A NA/HYALUR INTRAOC KIT (SURGICARE) ONE; -EPINEPHRINE INJ/PF 1 MG/1 ML AMPULE ONE; -KETOROLAC TROMETHAMINE 0.45% 4 DROP/0.4 ML DROPERETTE OS PRN; -TOBRAMYCIN SULFATE/DEXAMETH OPH OINTMENT 3.5 GM ONE
--- NOTE | 2017-06-21 11:02 | RADIOLOGY REPORT (SQ) ---
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 TECHNIQUE: The procedure was discussed with the patient and written informed consent obtained. A ti meout was performed to confirm the procedure and patient's identity. The skin of the neck was preppe d and draped in sterile fashion and 3 mL administered for local anesthesia. Under sonographic guidance, fine needle aspiration biopsy was per formed of the mass in the left lower lobe of the thyroid. Three separate aspirations were performed. Hemostasis was obtained with direct manual compression. There were no immediate complications. LIMITATIONS: None. FINDINGS: PATHOLOGY: Pending. IMPRESSION: ULTRASOUND-GUIDED BIOPSY PERFORMED OF A MASS IN THE LEFT LOBE OF THE THYROID. PATHOLOGY PENDING AT THE TIME OF DICTATION. COMMENT: Patient medication list reviewed: Yes- Quality ID# [id number]:Eligible professional attests to doc umenting in the medical record they obtained, updated, or reviewed the patient's current medications. TECHNICAL DOCUMENTATION: JOB ID: [id number] [employer]- All Rights Reserved
== END ==
LOC: RAD 08:35
PROVIDERS: ATTEND Otolaryngology
PROC: 0GBG3ZX Excision of Left Thyroid Gland Lobe, Percutaneous Approach, Diagnostic (ICD-10-PCS; principal; 2017-06-21)
DX: E04.1 Nontoxic single thyroid nodule (principal); J44.9 Chronic obstructive pulmonary disease, unspecified; E11.9 Type 2 diabetes mellitus without complications; I10 Essential (primary) hypertension; E78.5 Hyperlipidemia, unspecified; E03.9 Hypothyroidism, unspecified; Z79.51 Long term (current) use of inhaled steroids; Z79.899 Other long term (current) drug therapy; Z88.8 Allergy status to other drugs, medicaments and biological substances
CPT/HCPCS: 88173 ×2; 60100; J3490

== ENCOUNTER → 2017-08-16 | Outpatient (CLI) | payer MEDICARE, BC ==
--- NOTE | 2017-08-16 15:24 | RADIOLOGY REPORT (SQ) ---
EXAM DESCRIPTION: MRI CERVICAL SPINE COMBO COMPLETED DATE/TIME: 08/16/2017 2:11 pm REASON FOR STUDY: STENOSIS M48.02 SPINAL STENOSIS, CERVICAL REGION COMPARISON: MRI cervical spine 02/01/2017 CT cervical spine 01/13/2007 TECHNIQUE: Sagittal and Axial imaging includes T1, T2, STIR and gradient echo sequences. T1 post krystian olinium sequences. CONTRAST TYPE AND DOSE: 20 mL Multihance. RENAL FUNCTION: Estimated GFR 46 LIMITATIONS: Patient is morbidly obese and had difficulty laying in the scanner without motion. Rap id sequences were utilized. Patient vomited after contrast injection, motion artifact on some of the post contrasted images. FINDINGS: ALIGNMENT: Normal. VERTEBRAE: Intact. BONE MARROW: Normal. No marrow replacement or reactive changes. DISCS: There is ankylosis across the C5-6 disc space with bulky anterior osteophytes. Decreased T2 w eighted intervertebral disc signal throughout the remainder of the cervical spine HARDWARE: None in the spine. CORD AND BASE OF BRAIN: No abnormal intrinsic cord signal worrisome for edema or myelomalacia. No de finite abnormal enhancement post contrast. Posterior fossa structures are grossly unremarkable. SOFT TISSUES: 2 cm nodule right lower pole thyroid C1-C2: No significant spinal stenosis. C2-C3: Central and left paracentral disc bulge and bony spurring abuts the ventral cord without defin ite cord flattening or abnormal intrinsic cord signal. Borderline central canal stenosis. No signif icant foraminal narrowing. C3-C4: Left paracentral disc bulge and bony spurring, effaces the ventral thecal sac and abuts the le ftward cord with mild cord flattening. Mild central canal stenosis. No right foraminal narrowing. High-grade left foraminal narrowing. C4-C5: Broad diffuse posterior bulge and bony spurring left greater than right, effaces the ventral t hecal sac, abuts the leftward cord with mild cord flattening. Mild central canal stenosis. Mild rig ht foraminal narrowing. Moderate left foraminal stenosis. C5-C6: Broad diffuse posterior disc bulge and bony spurring left greater than right. This effaces th e ventral thecal sac and abuts the leftward ventral cord with mild cord flattening. No abnormal intr insic cord signal. Moderate right, high-grade left foraminal narrowing. C6-C7: Mild posterior disc bulge and bony spurring is present without significant central canal or fo raminal encroachment. C7-T1: Mild posterior disc bulge and bony spurring is present without significant central canal or fo raminal encroachment. UPPER THORACIC: Incompletely imaged. No significant spinal stenosis or exit foraminal stenosis. ENHANCEMENT: No abnormal cervical spinal cord or gross posterior fossa enhancement. OTHER: No other significant finding. IMPRESSION: Multilevel central canal narrowing left greater than right from asymmetric posterior dis c bulging and bony spurring. Limited scan due to motion artifact COMMENT: None. TECHNICAL DOCUMENTATION: JOB ID: [id number] [employer]- All Rights Reserved Reading location - IP/workstation name: [email or web address]
== END ==
LOC: RAD 12:43
PROVIDERS: ATTEND Otolaryngology
DX: M48.02 Spinal stenosis, cervical region (principal)
CPT/HCPCS: 72156; 82565

== ENCOUNTER 2018-11-28 16:08 | Day surgery (SDC) | payer MEDICARE, BC ==
[2018-11-28] MEDS ORDERED: ONDANSETRON HCL INJ/PF 4 MG/2 ML SDV ONE (17:20)
[2018-11-28] MEDS ORDERED: DIPHENHYDRAMINE HCL 50 MG/ML VIAL ONE (17:20)
[2018-11-28] MEDS ORDERED: FENTANYL CITRATE INJ/PF 100 MCG/2 ML AMPUL ONE (17:20)
[2018-11-28] MEDS ORDERED: NALOXONE HCL INJ/PF 0.4 MG/1 ML SDV ONE (17:21)
[2018-11-28] MEDS ORDERED: FLUMAZENIL INJ 0.5 MG/5 ML VIAL ONE (17:21)
[2018-11-28] MEDS ORDERED: EPINEPHRINE INJ 1 MG/10 ML DISP.SYRIN ONE (17:21)
[2018-11-28] MEDS ORDERED: MIDAZOLAM 2 MG/2 ML INJ ONE (17:21)
[2018-11-28] MEDS ORDERED: GLUCAGON,HUMAN RECOMB 1 MG INJ ONE (17:21)
[2018-11-28] MEDS ORDERED: MIDAZOLAM 2 MG/2 ML INJ IV ONE ×2 (17:40→17:52)
[2018-11-28] MEDS ORDERED: FENTANYL CITRATE INJ/PF 100 MCG/2 ML AMPUL IV ONE ×2 (17:42→17:55)
--- NOTE | 2018-11-28 18:17 | Operative Report ---
Operative Report DATE OF SURGERY: 11/28/18 Operative Report: Pre-op diagnosis: Abdominal pain and dysphagia Post-op diagnosis: 1. Antral gastritis 2. Gastric body polyps 3. Transverse colon polyp 4. Internal hemorrhoids Surgery: Upper endoscopy with biopsy, polypectomy and Colonoscopy with polypectomy Medications: Versed 4mg, Fentanyl 100mcg IV push Tissue removed: Gastric antral and body biopsy, gastric polyps. Colon polyp was not retrieved Procedure: After informed consent obtained from patient, patient's pharynx was sprayed with Hurricane and conscious sedation was achieved. The upper endoscope was then inserted into the esophagus under direct vision and advanced into the stomach and further into the duodenum. Detailed examination of the duodenum, stomach and the esophagus was then performed. A digital rectal examination was performed and this was unremarkable. The colonoscope was inserted into the rectum and advanced to the cecum. The appendiceal orifice and the terminal ileum were both identified. The mucosa was examined into details as the colonoscope was slowly pulled out of the patient. The endoscope was retroflexed in the rectum. Patient tolerated the procedure well. Findings Esophagus: Normal Stomach: Mild to moderate erythema noted in the gastric antrum. Two 8-12mm pedunculated polyps were noted in the gastric body and they were both removed with the hot polypectomy snare. Duodenum: Normal Cecum: Normal Ascending colon: Normal Transverse colon: 4 mm polyp was removed with the cold snare. Polyp was lost during suctioning Descending colon: Normal Sigmoid colon: Normal Rectum: Normal except for internal hemorrhoids Plan: Await pathology. Continue omeprazole OPERATION: .
[2018-11-28 19:06] VITALS: BP 164/95
== END 2018-11-28 19:01 | disposition home or self-care (01) ==
LOC: END 16:08
PROVIDERS: ATTEND Internal Medicine Gastroenterology
DX: K21.9 Gastro-esophageal reflux disease without esophagitis (principal); K29.50 Unspecified chronic gastritis without bleeding; K64.8 Other hemorrhoids; K31.7 Polyp of stomach and duodenum; D12.3 Benign neoplasm of transverse colon; E03.9 Hypothyroidism, unspecified; J44.9 Chronic obstructive pulmonary disease, unspecified; Z87.891 Personal history of nicotine dependence; Z79.82 Long term (current) use of aspirin; Z79.899 Other long term (current) drug therapy; Z79.84 Long term (current) use of oral hypoglycemic drugs
CPT/HCPCS: 43239; 43251; 45385; 82962; 88342 ×2; 88305 ×2; J3010; J0171; J1200; J1610; J2250; J2310; J2405; J3490